=== PATIENT | male | born 1935 | race Caucasian/White ===

== ENCOUNTER 2021-06-09 17:20 | Inpatient (IN) | payer MEDICARE, MEDICAID ==
[~2021-06-09] VITALS: Ht 182.9 cm; Wt 81.0 kg
[~2021-06-09 17:20] MED LIST: ALBU8.5H17 INH; ASPI-1265 PO; DOXAZOSIN; GUAI600T45 PO; LEVO750T21 PO; SIMV-45 PO
[2021-06-09] MEDS ORDERED: diltiazem 5mg/ml 5ml inj. IV ONE (17:40)
[2021-06-09 17:46] LABS: BASOPHILS # (AUTO) 0.1 X10'3 (0-0.2); EOSINOPHILS % (AUTO) 0 % (0-6); HEMOGLOBIN 12.8 g/dl (14.0-17.9); LYMPHOCYTES # (AUTO) 0.6 X10'3 (1.1-4.8); LYMPHOCYTES % (AUTO) 5.7 % (21-51); MEAN CORPUSCULAR HEMOGLOBIN 30.4 PG (27.0-31.0); MONOCYTES # (AUTO) 1.5 X10'3 (0-0.9); RED BLOOD COUNT 4.22 X10'6 (4.70-6.10)
[2021-06-09 17:48] LABS: BASOPHILS % (AUTO) 0.9 % (0-1); HEMATOCRIT 39.8 % (42.0-52.0); MEAN CORPUSCULAR HGB CONC 32.2 g/dL (33.0-36.5); MEAN CORPUSCULAR VOLUME 94.3 FL (78-98); MEAN PLATELET VOLUME 10.3 FL (7.4-10.4); MONOCYTES % (AUTO) 13.7 % (2-12); NEUTROPHILS % (AUTO) 79.7 % (42-75); RED CELL DISTRIBUTION WIDTH 15.2 % (11.5-14.5); WHITE BLOOD COUNT 11.3 X10'3 (4.5-11.0)
[2021-06-09 18:02] LABS: PLATELET COUNT 570 X10'3 (140-440)
[2021-06-09] MEDS ORDERED: CefTRIAXone/D5W-Rocephin 1gm 50 ML IV ONE (18:10)
[2021-06-09] MEDS: diltiazem-NS 100mg/100ml 100 ML IV SCH (18:15)
[2021-06-09] MEDS ORDERED: dexamethasone sod phosphate 10mg/ml inj IV STA (18:15)
[2021-06-09 18:58] LABS: ALANINE AMINOTRANSFERASE 33 U/L (12-78); ALBUMIN 2.5 G/DL (3.4-5.0); ALBUMIN/GLOBULIN RATIO 0.6 (1.1-1.5); ALKALINE PHOSPHATASE 69 IU/L (46-116); ANION GAP 15 (8-16); ASPARTATE AMINO TRANSFERASE 45 U/L (10-37); BILIRUBIN,TOTAL 1.7 MG/DL (0.1-1.0); BLOOD UREA NITROGEN 63 MG/DL (7-18); BUN/CREATININE RATIO 36.2 (5.4-32.0); CALCIUM 7.7 MG/DL (8.5-10.1); CHLORIDE 115 MMOL/L (99-107); CREATININE 1.74 MG/DL (0.60-1.10); GLUCOSE 124 MG/DL (70-104); POTASSIUM 3.6 MMOL/L (3.5-5.1); SODIUM 152 MMOL/L (135-145); TOTAL CARBON DIOXIDE 22.5 MMOL/L (24-32); TOTAL PROTEIN 6.8 G/DL (6.4-8.2); eGFR 37 ML/MIN
[2021-06-09 19:01] LABS: BILIRUBIN,DIRECT 0.8 MG/DL (0-0.3); LIPASE 382 U/L (73-393)
[2021-06-09 19:14] LABS: D-DIMER 3.07 MG/L FEU (0-0.50)
--- NOTE | 2021-06-09 20:16 | NUR ---
SIDE RAIL LEFT DOWN AFTER HOSPITALIST ASSESSMENT. RAISED SIDE RAIL FOR PATIENT SAFETY. PT IS CONFUSED AND TRYING TO GET OUT OF BED.
[2021-06-09] MEDS ORDERED: mag hydrox/Alum hydrox/simeth 30ml oral suspension PO PRN (20:20)
[2021-06-09] MEDS ORDERED: magnesium Cl slow-release 64mg tablet PO PRN (20:20)
[2021-06-09] MEDS ORDERED: magnesium 4gm in 100ml NS 100 ML IV PRN (20:20)
[2021-06-09] MEDS ORDERED: ondansetron/PF 4mg/2ml inj IV PRN (20:20)
[2021-06-09] MEDS ORDERED: magnesium 2GM in 50ml NS 50 ML IV PRN (20:20)
[2021-06-09] MEDS ORDERED: diltiazem-D5W 125mg/125ml 125 ML IV SCH (20:20)
[2021-06-09] MEDS ORDERED: potassium Cl 40MEQ/1/2NS 520ml 520 ML IV PRN ×2 (20:20)
[2021-06-09] MEDS ORDERED: potassium Cl 20 mEq SR tablet PO PRN ×2 (20:20)
[2021-06-09] MEDS ORDERED: acetaminophen 325mg tablet PO PRN ×2 (20:20)
[2021-06-09] MEDS ORDERED: HYDR-3964 PO (20:24)
[2021-06-09] MEDS ORDERED: TIOT18CA3 INH (20:24)
[2021-06-09] MEDS ORDERED: DOXA4TAB42 PO (20:24)
[2021-06-09] MEDS ORDERED: METO-384 PO (20:24)
[2021-06-09] MEDS ORDERED: SIMV40TA PO (20:24)
[2021-06-09] MEDS ORDERED: ASPI-1397 PO (20:24)
[2021-06-09] MEDS ORDERED: albuterol 2.5 MG/3 ML nebule NEB PRN (20:55)
[2021-06-09] MEDS ORDERED: iohexol 350MG/ML 100ml bottle IV ONE (21:05)
[2021-06-09] MEDS ORDERED: OLANZapine **IM** 10 mg inj. IM ONE (21:05)
--- NOTE | 2021-06-09 21:20 | NUR ---
PT PULLED OUT IV. NEW IV PLACED. PT REMAINS CONFUSED, PULLING AT LINES AND REMOVING O2.
--- NOTE | 2021-06-09 22:00 | NUR ---
PT CONTINUES TO REMOVE O2 MASK AND ATTEMPTING TO PULL AT LINES DESPITE MY EFFORTS TO PREVENT THIS.
[2021-06-09] MEDS: normal saline 1000ml 1,000 ML IV SCH (22:39)
[2021-06-09 22:45] LABS: ABG BASE EXCESS -2.7 mmol/L (-2.0-2.0); ABG HCO3 19.8 mmol/L (22.0-26.0); ABG OXYGEN SATURATION 87.9 % (94-97); ABG PCO2 (T) 27.4 mmHg (35.0-48.0); ABG PO2 (T) 55.1 mmHg (75.0-100.0); FCOHb 0.4 % (0.0-3.9); FO2Hb 87.5 % (94-97); PATIENT TEMPERATURE 36.5; TOTAL HEMOGLOBIN 12.5 G/dl (14.0-18.0)
--- NOTE | 2021-06-09 23:30 | NUR ---
NOTIFIED MD CEDENO OF PTS ELEVATED HR. CURRENT DILTIAZEM DOSE AT 15 MG.
--- NOTE | 2021-06-09 23:39 | NUR ---
PALCED ORDERS FOR SITTER. MADE DR. CEDENO AWARE THAT WE DO NOT HAVE STAFFING FOR A SITTER AND THE PT IS IN LINE OF SIGHT. NOTIFIED CHRAGE NURSE OF ORDERS, NOTIFIED HOUSE SUP. HOUSE SUP RUTH STATED HE WILL LOOK INTO THIS.
[2021-06-10 00:11] LABS: CLARITY,URINE CLEAR (Clear); COLOR,URINE YELLOW (Yellow); GLUCOSE, URINE NEGATIVE (Neg); KETONES,URINE TRACE mg/dl (Neg); LEUKOCYTE ESTERASE ,URINE NEGATIVE (Neg); NITRITES, URINE NEGATIVE (Neg); OCCULT BLOOD,URINE TRACE-LYSED (Neg); PH,URINE 5.5 (4.8-8.0); PROTEIN,URINE 30 mg/dl (Neg)
[2021-06-10] MEDS: metoprolol succinate 25mg (24-HOUR) SR. Tablet PO SCH ×2 (00:20→10:46)
[2021-06-10 00:21] LABS: UA COLLECTION TYPE URINAL
[2021-06-10 00:22] LABS: BACTERIA,URINE FEW /HPF (Neg); RBC,URINE 0-2 /HPF (0-2); SQUAMOUS EPITHELIAL CELL,UR FEW /LPF (FEW); WBC,URINE NONE SEEN /HPF (0-4)
[2021-06-10] MEDS ORDERED: metoprolol tartrate 1mg/ml inj IV ONE (01:15)
--- NOTE | 2021-06-10 01:16 | NUR ---
PT UNABLE TO TOLERATE PO INTAKE. MD CEDENO NOTIFIED THAT PO MEDS ARE NOT APPROPRIATE AT THIS TIME.
[2021-06-10] MEDS: normal saline 1000ml 1,000 ML IV SCH (01:30)
[2021-06-10] MEDS: ipratropium 0.5 MG/2.5ML nebule IH SCH ×3 (02:00→20:00)
[2021-06-10 02:47] LABS: EOSINOPHILS % (AUTO) 0 % (0-6); LYMPHOCYTES # (AUTO) 0.3 X10'3 (1.1-4.8); RED CELL DISTRIBUTION WIDTH 15.4 % (11.5-14.5)
[2021-06-10 02:49] LABS: BASOPHILS % (AUTO) 0.1 % (0-1); HEMATOCRIT 37.8 % (42.0-52.0); LYMPHOCYTES % (AUTO) 4.3 % (21-51); MEAN CORPUSCULAR HEMOGLOBIN 30.3 PG (27.0-31.0); MEAN CORPUSCULAR HGB CONC 31.8 g/dL (33.0-36.5); MEAN CORPUSCULAR VOLUME 95.1 FL (78-98); MEAN PLATELET VOLUME 10.2 FL (7.4-10.4); MONOCYTES # (AUTO) 0.5 X10'3 (0-0.9); MONOCYTES % (AUTO) 6.4 % (2-12); NEUTROPHILS # (AUTO) 7.3 X10'3 (1.8-7.7); NEUTROPHILS % (AUTO) 89.2 % (42-75); PLATELET COUNT 542 X10'3 (140-440); RED BLOOD COUNT 3.97 X10'6 (4.70-6.10); WHITE BLOOD COUNT 8.2 X10'3 (4.5-11.0)
[2021-06-10 03:31] LABS: ANISOCYTOSIS 1+; GIANT PLATELET FEW; LARGE PLATELETS FEW; PLATELET ESTIMATE INCREASED
[2021-06-10 03:41] LABS: ALANINE AMINOTRANSFERASE 34 U/L (12-78); ALBUMIN 2.5 G/DL (3.4-5.0); ALBUMIN/GLOBULIN RATIO 0.6 (1.1-1.5); ALKALINE PHOSPHATASE 63 IU/L (46-116); ANION GAP 12 (8-16); ASPARTATE AMINO TRANSFERASE 40 U/L (10-37); BILIRUBIN,TOTAL 1.4 MG/DL (0.1-1.0); BLOOD UREA NITROGEN 58 MG/DL (7-18); BUN/CREATININE RATIO 38.2 (5.4-32.0); CHLORIDE 117 MMOL/L (99-107); CREATININE 1.52 MG/DL (0.60-1.10); GLUCOSE 155 MG/DL (70-104); MAGNESIUM 2.8 MG/DL (1.5-2.4); POTASSIUM 3.7 MMOL/L (3.5-5.1); SODIUM 153 MMOL/L (135-145); TOTAL PROTEIN 6.7 G/DL (6.4-8.2); eGFR 44 ML/MIN
--- NOTE | 2021-06-10 05:52 | NUR ---
HR REMAINS HIGH. PT CONFUSED, POSSIBLE HALLUCINATIONS DEMONSTRATED BY PT TRYING TO FEED HIMSELF AND CHEWING ON NOTHING. WORDS ARE INCOMPREHENSABLE. PAGED
--- NOTE | 2021-06-10 06:06 | NUR ---
NOTIFIED MD CEDENO OF PTS DETERIORATING CONDITION. STATED SHE IS AWARE OF HIS CONDITION.
[2021-06-10] MEDS ORDERED: amiodarone 150mg/dext, iso-os 100 ML IV ONE (06:10)
[2021-06-10] MEDS: amiodarone/D5 360MG/200ML BAG 200 ML IV SCH ×3 (07:42→22:26)
[2021-06-10] MEDS ORDERED: dexamethasone 4mg/ml inj IM SCH (08:00)
[2021-06-10] MEDS: K and/or MAG REPLACEMENT MC SCH ×2 (08:00→20:00)
[2021-06-10] MEDS ORDERED: metoprolol succinate 25mg (24-HOUR) SR. Tablet PO SCH (08:00)
[2021-06-10] MEDS: heparin, porcine 5000 units/ml vial SQ SCH ×2 (10:45→22:25)
[2021-06-10] MEDS: aspirin 81mg, enteric-coated 1 TAB TABLET.DR PO SCH (10:46)
[2021-06-10] MEDS: doxazosin mesylate 2mg tablet PO SCH (10:46)
[2021-06-10] MEDS: atorvastatin 20mg tablet PO SCH (10:46)
[2021-06-10] MEDS: CefTRIAXone 2gm/D5W 50ml BAG 50 ML IV SCH (10:47)
--- NOTE | 2021-06-10 12:00 | NUR ---
PATIENT IS RESTLESS MOST OF THE MORNING, PULLING ON TUBES. FREQUENTLY REPOSITIONED FOR COMFORT. SOFT RESTRAINT TO RIGHT WRIST. IVS X 2 PATENT AND INFUSING WELL. ISOLATION MAINTAINED. OCCASIONAL MOIST COUGH NOTED.
[2021-06-10] MEDS: diltiazem-NS 100mg/100ml 100 ML IV SCH ×2 (12:46→22:36)
--- NOTE | 2021-06-10 13:13 | NUR ---
DAUGHTER, MORENA, HERE TO LEAVE CONTACT INFORMATION. CONTACT PHONE [phone]
[2021-06-10] MEDS ORDERED: ondansetron 4mg rapidly disintigrating tab PO PRN (15:50)
--- NOTE | 2021-06-10 15:51 | NUR ---
TC FROM SON FOR CONDITION REPORT.
[2021-06-10] MEDS: dextrose 5%-water 1,000 ML IV SCH (21:55)
[2021-06-10] MEDS: dexamethasone 4mg/ml inj IV SCH (22:24)
[2021-06-10] MEDS: lactobacillus rhamnosus 10,000 MMU CELLS/CAPSULE PO SCH (22:25)
[2021-06-11] MEDS: ipratropium 0.5 MG/2.5ML nebule IH SCH (02:00)
[2021-06-11] MEDS: amiodarone/D5 360MG/200ML BAG 200 ML IV SCH ×4 (06:26→18:34)
[2021-06-11 07:50] LABS: EOSINOPHILS % (AUTO) 0 % (0-6); HEMOGLOBIN 11.4 g/dl (14.0-17.9); LYMPHOCYTES # (AUTO) 0.3 X10'3 (1.1-4.8); MEAN PLATELET VOLUME 10.1 FL (7.4-10.4)
[2021-06-11 07:52] LABS: BASOPHILS % (AUTO) 0.4 % (0-1); HEMATOCRIT 36.5 % (42.0-52.0); LYMPHOCYTES % (AUTO) 3.9 % (21-51); MEAN CORPUSCULAR HEMOGLOBIN 30.3 PG (27.0-31.0); MEAN CORPUSCULAR HGB CONC 31.3 g/dL (33.0-36.5); MEAN CORPUSCULAR VOLUME 96.7 FL (78-98); MONOCYTES # (AUTO) 0.6 X10'3 (0-0.9); MONOCYTES % (AUTO) 7.8 % (2-12); NEUTROPHILS # (AUTO) 6.6 X10'3 (1.8-7.7); NEUTROPHILS % (AUTO) 87.9 % (42-75); PLATELET COUNT 541 X10'3 (140-440); RED BLOOD COUNT 3.77 X10'6 (4.70-6.10); RED CELL DISTRIBUTION WIDTH 15.5 % (11.5-14.5); WHITE BLOOD COUNT 7.5 X10'3 (4.5-11.0)
[2021-06-11 07:58] LABS: ALANINE AMINOTRANSFERASE 34 U/L (12-78); ALBUMIN 2.6 G/DL (3.4-5.0); ALBUMIN/GLOBULIN RATIO 0.6 (1.1-1.5); ALKALINE PHOSPHATASE 63 IU/L (46-116); ANION GAP 20 (8-16); ASPARTATE AMINO TRANSFERASE 38 U/L (10-37); BILIRUBIN,TOTAL 0.9 MG/DL (0.1-1.0); BLOOD UREA NITROGEN 55 MG/DL (7-18); BUN/CREATININE RATIO 35.7 (5.4-32.0); CALCIUM 7.6 MG/DL (8.5-10.1); CHLORIDE 112 MMOL/L (99-107); CREATININE 1.54 MG/DL (0.60-1.10); GLUCOSE 425 MG/DL (70-104); MAGNESIUM 2.9 MG/DL (1.5-2.4); POTASSIUM 3.2 MMOL/L (3.5-5.1); SODIUM 152 MMOL/L (135-145); TOTAL CARBON DIOXIDE 20.1 MMOL/L (24-32); TOTAL PROTEIN 6.7 G/DL (6.4-8.2); eGFR 43 ML/MIN
[2021-06-11] MEDS: K and/or MAG REPLACEMENT MC SCH ×2 (08:00→20:00)
[2021-06-11] MEDS: doxazosin mesylate 2mg tablet PO SCH (08:04)
[2021-06-11] MEDS: metoprolol succinate 25mg (24-HOUR) SR. Tablet PO SCH (08:04)
[2021-06-11] MEDS: atorvastatin 20mg tablet PO SCH (08:05)
[2021-06-11] MEDS: lactobacillus rhamnosus 10,000 MMU CELLS/CAPSULE PO SCH ×2 (08:05→20:00)
[2021-06-11] MEDS: aspirin 81mg, enteric-coated 1 TAB TABLET.DR PO SCH (08:05)
[2021-06-11] MEDS: dexamethasone 4mg/ml inj IV SCH ×2 (08:07→23:31)
[2021-06-11] MEDS: CefTRIAXone 2gm/D5W 50ml BAG 50 ML IV SCH (08:07)
[2021-06-11] MEDS: heparin, porcine 5000 units/ml vial SQ SCH ×2 (08:07→23:34)
[2021-06-11] MEDS: diltiazem-NS 100mg/100ml 100 ML IV SCH ×2 (08:21→16:27)
[2021-06-11 08:37] LABS: ELLIPTOCYTES FEW; GIANT PLATELET FEW; LARGE PLATELETS FEW; PLATELET ESTIMATE INCREASED; POLYCHROMASIA FEW; TEAR DROP CELLS FEW
[2021-06-11] MEDS: dextrose 5%-water 1,000 ML IV SCH (14:49)
--- NOTE | 2021-06-11 16:37 | NUR ---
Spoke with daughter Melquiades, states that he and spouse lives with her, spouse this morning, patient normally independent with ADLs, including making meals, discussed code status, states that patient does not want heroic measures, updated MD
[2021-06-11] MEDS ORDERED: LORazepam 2 mg/ml vial IV ONE (17:50)
--- NOTE | 2021-06-11 18:45 | NUR ---
PT LAYING AT AWKWARD ANGLE IN HIS BED, MUMBLING, UNABLE TO FOLLOW DIRECTIONS, SHAKING ALL LIMBS, GRABING AT SIDE RALES, APPEARS UNCOMFORTABLE. PER DAY SHIFT THIS IS PT'S BASE LINE. HR 130'S AFIB RVR ON AMIODARONE AND DILT GTTS.
--- NOTE | 2021-06-11 22:00 | NUR ---
PT NOTED TO BE BLEEDING, IT APPEARS HE WEDGED HIS WRIST DOWN BETWEEN THE RAILS OF THE BED AND CAUSED A SKIN TEAR. WOUND DRESSED, PT EXTREEMLY AGITATED. CALL IN TO HOSPITALIST TO NOTIFY.
--- NOTE | 2021-06-12 | NUR ---
MD PAGED TO DISCUSS PT'S STATUS, HE HAS REMAINED AGITATED THROUGHOUT ENTIRITY OF SHIFT. NOT ABLE TO FOLLOW DIRECTIONS, PULLING AT CATHETER. PT HAD ATIVAN EARLIER IN THE SHIFT AND RN WOULD LIKE TO REPEAT.
[2021-06-12] MEDS: amiodarone/D5 360MG/200ML BAG 200 ML IV SCH (00:38)
[2021-06-12] MEDS ORDERED: LORazepam 2 mg/ml vial IV ONE (01:25)
--- NOTE | 2021-06-12 02:00 | NUR ---
SPOKE TO ABOUT PT'S CONTANT AGITATION, SHAKING. SEE ORDER FOR REPEAT ATIVAN.
[2021-06-12] MEDS: dextrose 5%-water 1,000 ML IV SCH ×2 (02:37→21:54)
--- NOTE | 2021-06-12 02:42 | NUR ---
PT SLEEPING, MOUTH BREATHING, N/C MOVED TO MOUTH TO ASSIST, SAT'S 96% WITH N/C AT 5LPM. RR IMPROVED, HR IMPROVED.
[2021-06-12 04:33] LABS: BASOPHILS % (AUTO) 0.2 % (0-1); EOSINOPHILS % (AUTO) 0 % (0-6); HEMATOCRIT 34.5 % (42.0-52.0); HEMOGLOBIN 10.7 g/dl (14.0-17.9); LYMPHOCYTES # (AUTO) 0.3 X10'3 (1.1-4.8); LYMPHOCYTES % (AUTO) 3.3 % (21-51); MEAN CORPUSCULAR HEMOGLOBIN 30.6 PG (27.0-31.0); MEAN CORPUSCULAR HGB CONC 31.1 g/dL (33.0-36.5); MEAN CORPUSCULAR VOLUME 98.2 FL (78-98); MEAN PLATELET VOLUME 9.7 FL (7.4-10.4); MONOCYTES # (AUTO) 0.5 X10'3 (0-0.9); MONOCYTES % (AUTO) 6.3 % (2-12); NEUTROPHILS # (AUTO) 6.9 X10'3 (1.8-7.7); NEUTROPHILS % (AUTO) 90.2 % (42-75); PLATELET COUNT 477 X10'3 (140-440); RED BLOOD COUNT 3.51 X10'6 (4.70-6.10); RED CELL DISTRIBUTION WIDTH 15.8 % (11.5-14.5); WHITE BLOOD COUNT 7.7 X10'3 (4.5-11.0)
--- NOTE | 2021-06-12 04:46 | NUR ---
PT CONTINUES TO MOVE ALL OVER BED, HE IS HYPER REACTIVE WHEN HIS FACE IS TOUCHED, MOANING AND LIFTING HIS L.ARM, APPEARS TO BE HALLUCINATING. UNABLE TO COMPREHEND WHAT PT IS CALLING OUT FOR, RN CONTINUES TO VERBALLY CALM PT.
[2021-06-12 04:58] LABS: ALANINE AMINOTRANSFERASE 40 U/L (12-78); ALBUMIN 2.5 G/DL (3.4-5.0); ALBUMIN/GLOBULIN RATIO 0.7 (1.1-1.5); ALKALINE PHOSPHATASE 58 IU/L (46-116); ANION GAP 12 (8-16); ASPARTATE AMINO TRANSFERASE 39 U/L (10-37); BILIRUBIN,TOTAL 0.7 MG/DL (0.1-1.0); BLOOD UREA NITROGEN 53 MG/DL (7-18); BUN/CREATININE RATIO 36.6 (5.4-32.0); C-REACTIVE PROTEIN 3.49 MG/DL (0.0-0.5); CALCIUM 7.4 MG/DL (8.5-10.1); CHLORIDE 113 MMOL/L (99-107); CREATININE 1.45 MG/DL (0.60-1.10); GLUCOSE 269 MG/DL (70-104); LACTATE DEHYDROGENASE 350 U/L (85-227); MAGNESIUM 2.9 MG/DL (1.5-2.4); POTASSIUM 3.3 MMOL/L (3.5-5.1); SODIUM 148 MMOL/L (135-145); TOTAL CARBON DIOXIDE 22.9 MMOL/L (24-32); TOTAL PROTEIN 6.3 G/DL (6.4-8.2); eGFR 46 ML/MIN
[2021-06-12 05:17] LABS: ABG BASE EXCESS -5.1 mmol/L (-2.0-2.0); ABG HCO3 18.7 mmol/L (22.0-26.0); ABG OXYGEN SATURATION 90.7 % (94-97); ABG PCO2 (T) 29.2 mmHg (35.0-48.0); ABG PO2 (T) 60.7 mmHg (75.0-100.0); FCOHb 0.3 % (0.0-3.9); FMetHb 0.1 % (0.0-1.5); FO2Hb 90.3 % (94-97)
[2021-06-12] MEDS: CefTRIAXone 2gm/D5W 50ml BAG 50 ML IV SCH (08:02)
[2021-06-12] MEDS: heparin, porcine 5000 units/ml vial SQ SCH ×2 (08:02→21:55)
[2021-06-12] MEDS: diltiazem-NS 100mg/100ml 100 ML IV SCH ×2 (08:02→22:13)
[2021-06-12] MEDS: K and/or MAG REPLACEMENT MC SCH ×2 (08:03→21:43)
[2021-06-12] MEDS: dexamethasone 4mg/ml inj IV SCH ×2 (08:03→20:00)
[2021-06-12 19:59] LABS: D-DIMER 3.89 MG/L FEU (0-0.50)
[2021-06-12] MEDS: aspirin 81mg, enteric-coated 1 TAB TABLET.DR PO SCH (20:18)
[2021-06-12] MEDS: lactobacillus rhamnosus 10,000 MMU CELLS/CAPSULE PO SCH ×2 (20:18→21:43)
[2021-06-12] MEDS: doxazosin mesylate 2mg tablet PO SCH (20:18)
[2021-06-12] MEDS: metoprolol succinate 25mg (24-HOUR) SR. Tablet PO SCH (20:19)
[2021-06-12] MEDS: atorvastatin 20mg tablet PO SCH (20:19)
[2021-06-12] MEDS ORDERED: potassium Cl 20 mEq SR tablet PO PRN ×2 (21:50)
[2021-06-12] MEDS ORDERED: potassium Cl 40MEQ/1/2NS 520ml 520 ML IV PRN (21:50)
[2021-06-12] MEDS ORDERED: magnesium 4gm in 100ml NS 100 ML IV PRN (21:50)
[2021-06-12] MEDS ORDERED: magnesium Cl slow-release 64mg tablet PO PRN (21:50)
--- NOTE | 2021-06-12 22:00 | NUR ---
K 3..3, PT HAS K PROTOCOL ORDERED. 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 REMAINS IN SOFT NON BEHAVIORAL RESTRAINTS.
--- NOTE | 2021-06-12 22:18 | NUR ---
HOSPITALIST CALLED. VERBAL RECEIVED FROM DR. SINGH FOR PRN ATIVAN 0.5 MG Q2 HR PRN FOR AGGITATION.
[2021-06-12] MEDS: LORazepam 2 mg/ml vial IV PRN (22:58)
--- NOTE | 2021-06-12 23:23 | NUR ---
GIVEN PRN ATIVAN 0.5 MG IV. CARDIAIEM GTT INFUSING AND K 40 MEQ 4 HR INFUSION STARTED FOR REPORACMENT AND PTS D5 AT 70 NFUSING. ACCUCHECK 146. T REMAINS IN ISOLATION [place] FOR COVID +. AWAITING IPA.
--- NOTE | 2021-06-13 00:21 | NUR ---
DR. SINGH CALLED TO UPDATE THAT PT IS PROGRESSIVELY MORE AGGITATED. WAS GIVEN ATIVAN 0.5 MG IV 1.5 HR AGO WITH NO NOTICABLE CHANGES. RN WORKING WITH PT LAST NIGHT, Param THOMPSON, AND DAY TIME RN, Ronal RINCON, BOTH HERE AND STATE HE APPEARS MORE AGGITATED AND PALE AND DOES NOT LOOK GOOD HE DID LAST NIGHT. WITH ANY ASSESSMENT FOROM RN PT BECOMES INCREASINGLY AGGITATED AND RR INCREASED TO 30'S. PTS AM LABS JUST DRAWN. PT WITH BILATERAL EXPIRATORY WHEEZINIG. HR CONTINUES TO BE IRREGULAR AND AFIB WITH OCCASIONAL PVC'S AND RANGES FROM 110-130S. VERBAL RECEIVED FROM DR. SINGH FOR PRN MDI. I REQUESTED THAT MD VIEW PTS LAB TRENDS AND NOTES TO SEE IF THERE MAY BE ADDITIONAL THINGS WE CAN DO FOR THE PT AND HE REPORTED THAT HE WOULD DO THIS.
[2021-06-13 00:36] LABS: BASOPHILS % (AUTO) 0.2 % (0-1); EOSINOPHILS % (AUTO) 0 % (0-6); HEMATOCRIT 35.2 % (42.0-52.0); HEMOGLOBIN 11.6 g/dl (14.0-17.9); LYMPHOCYTES # (AUTO) 0.3 X10'3 (1.1-4.8); LYMPHOCYTES % (AUTO) 3.2 % (21-51); MEAN CORPUSCULAR HEMOGLOBIN 30.9 PG (27.0-31.0); MEAN CORPUSCULAR VOLUME 93.6 FL (78-98); MEAN PLATELET VOLUME 9.4 FL (7.4-10.4); MONOCYTES # (AUTO) 0.6 X10'3 (0-0.9); MONOCYTES % (AUTO) 7.1 % (2-12); NEUTROPHILS # (AUTO) 7.3 X10'3 (1.8-7.7); NEUTROPHILS % (AUTO) 89.5 % (42-75); PLATELET COUNT 501 X10'3 (140-440); RED BLOOD COUNT 3.76 X10'6 (4.70-6.10); RED CELL DISTRIBUTION WIDTH 15.1 % (11.5-14.5); WHITE BLOOD COUNT 8.1 X10'3 (4.5-11.0)
[2021-06-13 00:46] LABS: ALANINE AMINOTRANSFERASE 48 U/L (12-78); ALBUMIN 2.7 G/DL (3.4-5.0); ALBUMIN/GLOBULIN RATIO 0.7 (1.1-1.5); ALKALINE PHOSPHATASE 67 IU/L (46-116); ANION GAP 8 (8-16); ASPARTATE AMINO TRANSFERASE 41 U/L (10-37); BILIRUBIN,TOTAL 0.9 MG/DL (0.1-1.0); BLOOD UREA NITROGEN 37 MG/DL (7-18); BUN/CREATININE RATIO 30.6 (5.4-32.0); C-REACTIVE PROTEIN 2.21 MG/DL (0.0-0.5); CALCIUM 7.7 MG/DL (8.5-10.1); CHLORIDE 115 MMOL/L (99-107); CREATININE 1.21 MG/DL (0.60-1.10); GLUCOSE 154 MG/DL (70-104); LACTATE DEHYDROGENASE 381 U/L (85-227); MAGNESIUM 2.7 MG/DL (1.5-2.4); POTASSIUM 3.8 MMOL/L (3.5-5.1); SODIUM 147 MMOL/L (135-145); TOTAL CARBON DIOXIDE 24.2 MMOL/L (24-32); TOTAL PROTEIN 6.6 G/DL (6.4-8.2); eGFR 57 ML/MIN
[2021-06-13] MEDS ORDERED: ALBUTEROL INHALER 1 PUFF/90 MCG INHALER IH PRN (00:50)
[2021-06-13 01:27] LABS: D-DIMER 3.41 MG/L FEU (0-0.50)
--- NOTE | 2021-06-13 02:03 | NUR ---
RT PAGED AND REQUESTED TO EVAL. RT, JAMES, REPORTS HE HAS BEEN WITH THIS PT THE PAST FEW DAYS AND IS FAMILIAR WITH HIM AND REPORTS PT WITH NO SIGNIFICANT CHANGES IN HIS BEHAVIOR. UPTDATED THAT PTS RR IS INICREASED SINCE I CAME ON SHIFT. RR WAS 20'S AND NOW REGULRALY GOING UP TO MID 30'S, ALTHOUGH PT IS RESTLESS.
[2021-06-13] MEDS: LORazepam 2 mg/ml vial IV PRN ×3 (05:12→15:50)
--- NOTE | 2021-06-13 05:30 | NUR ---
REMAINS N RESTRAINTS DILTIZEM GTT AT 15 MH HR AND HR 88-105. PT REMAINS RESTLESS, BUT RESPONDNG TO ATIVAN PRN .5 MG IV AND HVING SPISODES OF CALMNESS. ORAL CARE COMPLETED. O2 SATS ON 4 NC 94%. RR 22-30.
[2021-06-13] MEDS: diltiazem-NS 100mg/100ml 100 ML IV SCH (07:33)
[2021-06-13] MEDS: metoprolol succinate 25mg (24-HOUR) SR. Tablet PO SCH (08:00)
[2021-06-13] MEDS: K and/or MAG REPLACEMENT MC SCH (08:00)
[2021-06-13] MEDS: atorvastatin 20mg tablet PO SCH (08:00)
[2021-06-13] MEDS: lactobacillus rhamnosus 10,000 MMU CELLS/CAPSULE PO SCH (08:00)
[2021-06-13] MEDS: doxazosin mesylate 2mg tablet PO SCH (08:00)
[2021-06-13] MEDS: aspirin 81mg, enteric-coated 1 TAB TABLET.DR PO SCH (08:00)
[2021-06-13] MEDS: dexamethasone 4mg/ml inj IV SCH (08:03)
[2021-06-13] MEDS: heparin, porcine 5000 units/ml vial SQ SCH (08:03)
[2021-06-13] MEDS: CefTRIAXone 2gm/D5W 50ml BAG 50 ML IV SCH (08:04)
--- NOTE | 2021-06-13 08:19 | NUR ---
patient is increasingly lethargic. unable to follow commands and not opening eyes. he continues to be restless and pulls at lines when restraints are removed. overnight cardizem gtt was increased to 15ml/hr. HR in 90s while patient is at rest. Dr. Monterroso updated that patient seems to be declining. Unable to take PO meds. MD states he will discuss plan of care with family.
[2021-06-13] MEDS ORDERED: morphine ORAL 5MG/0.25 ML (Conc. morphine) oral syringe PO PRN (10:45)
[2021-06-13] MEDS: morphine 10mg/0.5ml (conc. morphine) oral syringe PO PRN ×2 (11:21→17:45)
--- NOTE | 2021-06-13 11:30 | NUR ---
Confirmed with Dr. Monterroso that patient is being made comfort care. DC'd all drips, VS monitors removed, medications administered for comfort, and restraints removed. Family called, no answer. Case management to contact family.
--- NOTE | 2021-06-13 11:57 | NUR ---
Advised by Dr. Monterroso that he has been in communication w/ pt's daughter Melquiades and family has made the decision to place pt under the comfort care protocol. Dr. Monterroso is asking me to touch base w/ Abdulazizny to work out the logistics of family seeing pt. Called Melquiades and she confirms that she has asked for comfort care measures for her father. Melquiades is distraught, she tells me that her mother just suddenly 2 days ago and now she is having to deal w/ her father's passing. Per Yuliya Cade RN and charger operator Suzy it is ok for family to come (2 at a time) to say their good-byes. Called Melquiades back and made her aware of visitation, she was most appreciative. Meanwhile nursing sup is looking for a room to transfer pt to. Note for Melqiuades's work signed by Dr. Monterroso and placed w/ pt's clip board. His RN Jolene is aware and will pass it on to Melquiades when she arrives. Will continue to monitor.
--- NOTE | 2021-06-13 12:22 | NUR ---
family at bedside
[2021-06-13] MEDS: morphine 2 MG/ML inj. syringe IV PRN ×3 (13:02→20:46)
--- NOTE | 2021-06-13 13:10 | NUR ---
family would like to use [facility] on [address] [phone]
--- NOTE | 2021-06-13 14:38 | NUR ---
Initial: Pt admit for AMS, COVID PNA, and hypernatremia. Currently DNR with comfort care. Will continue to follow per LOS. Recommendations: 1) Bowel care per comfort care measures Addendum: 06/13/21 at [address] Amended: Links added.
[2021-06-13 15:56] VITALS: BP 109/66
[2021-06-13 18:00] VITALS: BP 105/63
--- NOTE | 2021-06-13 18:13 | NUR ---
Problems reprioritized. Patient report given, questions answered & plan of care reviewed with Erma Cavazos.
[2021-06-13 22:00] VITALS: BP 107/72
[2021-06-14] MEDS: morphine 10mg/0.5ml (conc. morphine) oral syringe PO PRN (00:08)
[2021-06-14] MEDS: LORazepam 2 mg/ml vial IV PRN ×5 (00:45→21:45)
[2021-06-14 02:00] VITALS: BP 102/65
[2021-06-14] MEDS: morphine 2 MG/ML inj. syringe IV PRN ×3 (02:58→09:58)
--- NOTE | 2021-06-14 06:22 | NUR ---
Problems reprioritized. Patient report given, questions answered & plan of care reviewed with Page PALM.
--- NOTE | 2021-06-14 06:39 | NUR ---
Patient in room PCU 3008. I have received report from andrew PALM and had the opportunity to ask questions and assume patient care.
[2021-06-14 07:02] VITALS: BP 142/62
[2021-06-14] MEDS: morphine 4 MG/ML inj SYRINge IV PRN ×2 (13:52→19:02)
[2021-06-14 18:00] VITALS: BP 110/56
--- NOTE | 2021-06-14 18:14 | NUR ---
patient agitated on and off during shift DR grant paged and orders given to increase meds. patient responded well to new med regime able to rest more. Lungs coarse remains on O2 for comfort 78-90% on 4L agitated and flailing prior to increase in meds. At time of report resting in bed. Report given to Erma PALM
[2021-06-14 22:00] VITALS: BP 110/56
--- NOTE | 2021-06-14 22:55 | NUR ---
administered Ativan @ 2145 medication and pt both were scanned per policy administration. Charge nurses aware and witnessed.
[2021-06-15] MEDS: morphine 4 MG/ML inj SYRINge IV PRN ×4 (01:01→18:02)
[2021-06-15 02:00] VITALS: BP 105/71
[2021-06-15] MEDS: LORazepam 2 mg/ml vial IV PRN ×2 (03:20→10:17)
--- NOTE | 2021-06-15 06:44 | NUR ---
Problems reprioritized. Patient report given, questions answered & plan of care reviewed with tc goncalves.
--- NOTE | 2021-06-15 12:22 | NUR ---
Patient in room PCU 3008. I have received report from NÉSTOR García and had the opportunity to ask questions and assume patient care.
[2021-06-15 18:39] VITALS: BP 108/77
--- NOTE | 2021-06-15 18:41 | NUR ---
Problems reprioritized. Patient report given, questions answered & plan of care reviewed with NÉSTOR Burroughs.
[2021-06-15 19:44] VITALS: BP 52/32
--- NOTE | 2021-06-16 06:00 | NUR ---
Patient in room PCU 3008. I have received report from Heike PALM and had the opportunity to ask questions and assume patient care.
--- NOTE | 2021-06-16 06:21 | NUR ---
Problems reprioritized. Patient report given, questions answered & plan of care reviewed with GREY PALM.
[2021-06-16 08:38] VITALS: BP 73/34
[2021-06-16] MEDS: LORazepam 2 mg/ml vial IV PRN (12:36)
--- NOTE | 2021-06-16 18:04 | NUR ---
Problems reprioritized. Patient report given, questions answered & plan of care reviewed with Khadijah PALM.
--- NOTE | 2021-06-16 18:05 | NUR ---
Patient in room PCU 3008. I have received report from Lyn PALM and had the opportunity to ask questions and assume patient care.
--- NOTE | 2021-06-16 18:45 | NUR ---
Joao Kilgore was found in asystole, without pulse, and not breathing in his room at 1845. Dr. Cardona has been notified.
--- NOTE | 2021-06-16 18:56 | NUR ---
PAGER ID: [phone] MESSAGE: RE: [email or web address] [id number]: Mr. Kilgroe has . Daria [phone]
== END 2021-06-16 23:35 | DRG 177 ==
LOC: ER 17:21 → ED HOLD 20:20 → EDBEDREQTM 06-13 13:43 → PCU 3S 06-13 14:15
PROVIDERS: ADMIT Internal Medicine; ATTEND Family Medicine
PROC: B32T1ZZ Computerized Tomography (CT Scan) of Left Pulmonary Artery using Low Osmolar Contrast (ICD-10-PCS; principal; 2021-06-09)
PROC: B3201ZZ Computerized Tomography (CT Scan) of Thoracic Aorta using Low Osmolar Contrast (ICD-10-PCS; 2021-06-09)
PROC: B32S1ZZ Computerized Tomography (CT Scan) of Right Pulmonary Artery using Low Osmolar Contrast (ICD-10-PCS; 2021-06-09)
DX: U07.1 COVID-19 (principal); J12.82 Pneumonia due to coronavirus disease 2019; J96.00 Acute respiratory failure, unspecified whether with hypoxia or hypercapnia; E87.0 Hyperosmolality and hypernatremia; G93.40 Encephalopathy, unspecified; R79.89 Other specified abnormal findings of blood chemistry; Z51.5 Encounter for palliative care; G89.29 Other chronic pain; Z66 Do not resuscitate; N18.30 Chronic kidney disease, stage 3 unspecified; I12.9 Hypertensive chronic kidney disease with stage 1 through stage 4 chronic kidney disease, or unspecified chronic kidney disease; I48.91 Unspecified atrial fibrillation; Z78.1 Physical restraint status
CPT/HCPCS: 36415; 36600; 70450; 71045; 71275; 80048; 80053; 80076; 80346; 81001; 81003; 82803; 82948; 83605; 83615; 83690; 83735; 84484; 85008; 85018; 85025; 85379; 86140; 87040; 87635; 93005; 93308; 94760; 96365; 96375; 99285; C9803; G0378; J0696; J1100; J1644; J2060; J2270; J3480; J3490; J7030; J7070; Q9967